=== PATIENT | male | born 1960 | race Native Hawaiian/Other Pacific Islander ===

== ENCOUNTER 2016-11-14 22:24 | Emergency (ER) | payer MEDICAID ==
[~2016-11-14] VITALS: Ht 185.4 cm; Wt 125.0 kg
[~2016-11-14 22:24] MED LIST: ARMO120T PO; ATOR40TA16 PO; BLOOD GLUCOSE M1 KIT; BLOOD GLUCOSE T1 TES; BUPR100T4 PO; CARD2TAB PO; CETI10 PO; CHRO200T4; CIAL5TAB PO; CLON1TAB PO; COQ-100C2; DAPA1TAB3 PO; GLUC1000 PO; HYDR-3366 PO; LOSA50TA PO; METO5TAB3 PO; OMEP20TA PO; POTA-243 PO; REQU5TAB PO; TRAZ300T2 PO; TRYP500C PO; VICT18IN SQ; XANA1TAB2 PO
[2016-11-14 22:26] VITALS: BP 160/86; PULSE 78; RESP 18; TEMP 97.9; O2SAT 98
[2016-11-15] MEDS ORDERED: HYDROmorphone HCL PF 1 MG/ML VIAL IM ONE (02:30)
[2016-11-15] MEDS ORDERED: LORazepam 2 MG/ML VIAL IM ONE (02:30)
[2016-11-15] MEDS ORDERED: MEDR4PAK PO (02:35)
[2016-11-15] MEDS ORDERED: HYDR-3516 PO (02:35)
--- NOTE | 2016-11-15 02:35 | PD ---
HPI Chief Complaint: Musculoskeletal Complaint Time Seen by Provider: 02:01 Travel History International Travel<30 days: No Contact w/Intl Traveler<30days: No Traveled to known affect area: No History of Present Illness HPI 56-year-old male came to the emergency room with history of lower back pain radiating down his left leg. Pain is getting worse over past 2 weeks and now he is getting some paresthesia as well. No history of bowel or bladder incontinence. Patient had gone to [facility] 2 weeks ago where a CAT scan was done that appeared to be within normal limits. After the symptoms continued he went to see his primary care yesterday who try to arrange for an MRI by getting preauthorization and then asked them to come to the emergency room to get the MRI done. Patient is here with the expectation to get an open MRI since they tried to get a closed MRI earlier yesterday as an outpatient and he got extremely claustrophobic. Vital signs are stable. Patient has history of lower back surgery for prolapsed disc in the past. [facility] Past Medical History Narrative Medical List of his past medical history as reviewed from the nursing note. Cancer: No Cardiovascular Problems: Yes (HTN) High Cholesterol: Yes Diabetes: Yes Patient Takes Glucophage: Yes Diminished Hearing: No Endocrine: Yes Genitourinary: Yes (FATTY LIVER) Hepatitis: No Hiatal Hernia: Yes Hypertension: Yes Immune Disorder: No Musculoskeletal: Yes (BACK AND NECK PAIN , NUMBNESS L HAND AND R LEG. L TRIGGER FINGER) Neurologic: Yes (neuropathy) Psychiatric: Yes (ANXIETY) Reproductive: No Respiratory: Yes (SLEEP APNEA USES A MACHINE ) Thyroid Disease: Yes Past Surgical History AICD: No Body Medical Devices: HARDWARE IN NECK AND BACK Joint Replacement: No Pacemaker: No Other Surgery: Yes (prostate, hernia, carpal tunnel, trigger finger) Social History Alcohol Use: No Tobacco Use: Yes (cigars) Substance Use: No Allergies-Medications (Allergen,Severity, Reaction): Coded Allergies: Fentanyl (Verified Allergy, Severe, ANAPHYLACTIC SHOCK, 11/14/16) Milk (Verified Allergy, Severe, Diarrhea, 11/14/16) Seroquel (Verified Allergy, Severe, SHAKING, 11/14/16) Toradol (Verified Allergy, Severe, SWELLING EYES, DIFFICULTY BREATHING, 11/14/16) Adhesives (Verified Allergy, Unknown, Rash, 11/14/16) Cortisone (Verified Allergy, Unknown, DIFFICULTY BREATHING, SWELLING TO EYES, 11/14/16) Meat (Verified Allergy, Unknown, RED MEAT, ABD. SWELLING, 11/14/16) Shellfish (Verified Allergy, Unknown, BLOATING, ITCHY, 11/14/16) Wheat (Verified Allergy, Unknown, DIVERTICULITIS, 11/14/16) Comments List of his allergies reviewed from the nursing note. Reported Meds & Prescriptions Reported Meds & Active Scripts Active Medrol Dosepak (Methylprednisolone) 4 Mg Dspk 4 Mg PO DIRECTED Per Pharmacist direction Hydrocodone-Acetaminophen 5-325 mg Tab 1 Tab PO Q6H PRN Blood Glucose Test Strips 1 Mabel Mabel 1 Box .ROUTE DIRECTED Blood Glucose Monitoring W/Device (Device) 1 Kit Kit 1 Kit .ROUTE DIRECTED Victoza Inj (Liraglutide Inj) 18 Mg/3 Ml Pen 1.8 Mg SQ ONCE Farxiga (Dapagliflozin) 10 Mg Tab 10 Mg PO DAILY Atorvastatin (Atorvastatin Calcium) 40 Mg Tab 40 Mg PO HS Glucophage (Metformin HCl) 1,000 Mg Tab 1,000 Mg PO BIDPC With a meal Reported Chromium Picolinate 200 Mcg Tab Xanax (Alprazolam) 1 Mg Tab 1 Mg PO Q6H PRN Trazodone (Trazodone HCl) 300 Mg Tab 300 Mg PO HS Requip (Ropinirole) 5 Mg Tab 5 Mg PO ONCE [place] (Hydrocodone-Acetaminophen) 10-325 Mg Tab 1 Tab PO Q4H PRN Tryptophan 500 Mg Cap 1,500 Mg PO DAILY Coq-10 (Coenzyme Q10 (Ubidecarenone)) 100 Mg Cap Clonazepam 1 Mg Tab 1 Mg PO BID Bupropion HCl 100 Mg Tab 300 Mg PO HS Klor-Con 10 (Potassium Chloride) 10 Meq Tab 10 Meq PO ONCE Omeprazole 20 Mg Tab 20 Mg PO DAILY Metolazone 5 Mg Tab 5 Mg PO DAILY Losartan (Losartan Potassium) 50 Mg Tab 50 Mg PO DAILY Cialis (Tadalafil) 5 Mg Tab 5 Mg PO DAILY Do not exceed 1 dose/day. Cetirizine (Cetirizine HCl) 10 Mg Tab 10 Mg PO DAILY Cardura (Doxazosin Mesylate) 2 Mg Tab 2 Mg PO DAILY [place] Thyroid (Thyroid) 120 Mg Tab 120 Mg PO DAILY Narrative Medication List of his home medications reviewed from the nursing note. Review of Systems Except as stated in HPI: all other systems reviewed are Neg Physical Exam Narrative GENERAL: Awake, alert, obese, moderate distress SKIN: Warm and dry. HEAD: Atraumatic. Normocephalic. EYES: Pupils equal and round. No scleral icterus. No injection or drainage. ENT: No nasal bleeding or discharge. Mucous membranes pink and moist. NECK: Trachea midline. No JVD. CARDIOVASCULAR: Regular rate and rhythm. No murmur appreciated. RESPIRATORY: No accessory muscle use. Clear to auscultation. Breath sounds equal bilaterally. GASTROINTESTINAL: Abdomen soft, non-tender, nondistended. Hepatic and splenic margins not palpable. MUSCULOSKELETAL: No obvious deformities. No clubbing. No cyanosis. No edema. NEUROLOGICAL: Awake and alert. No obvious cranial nerve deficits. Motor grossly within normal limits. Normal speech. Positive SLR of the left leg. PSYCHIATRIC: Appropriate mood and affect; insight and judgment normal. Data Data Last Documented VS Vital Signs Date Time Temp Pulse Resp B/P Pulse Ox O2 Delivery O2 Flow Rate FiO2 11/14/16 22:26 97.9 78 18 160/86 98 Orders Hydromorphone Pf Inj (Dilaudid Pf Inj) (11/15/16 02:30) Lorazepam Inj (Ativan Inj) (11/15/16 02:30) MDM Medical Decision Making Medical Screen Exam Complete: Yes Emergency Medical Condition: Yes Medical Record Reviewed: Yes Differential Diagnosis Sciatica, lumbar radiculopathy Narrative Course 2:31 AM I confirmed with the charge nurse regarding open MRI and this institution does not have open MRI. However there is open MRI available at [facility]. I explained this to the patient along with the charge nurse. Patient's son is there and they both understood. They were comfortable getting pain medication and muscle relaxant. I'll discharge him home with descriptions and he will get an MRI as an outpatient. Procedures EKG Prior to Arrival: No Diagnosis Primary Impression: Lumbar radiculopathy Referrals: Primary Care Physician 2 days Additional Instructions: Please take the medications as per the prescription direction. Please take the prescription for outpatient MRI from here primary care and try to get an open MRI. Do not drive or operate heavy machinery while on medications since they will make you groggy. Med/Other Pt SpecificInfo: Prescription(s) given Scripts Methylprednisolone Dosepak (Medrol Dosepak)4 Mg Dspk4 Mg PO DIRECTED #1 DSPK Ref 0 Per Pharmacist direction Prov:Gutierrez Yo MD 11/15/16 Hydrocodone-Acetaminophen 5-325 mg Tab1 Tab PO Q6H PRN (PAIN) #20 TAB Ref 0 Prov:Gutierrez Yo MD 11/15/16 Disposition: 01 DISCHARGE HOME Condition: Stable Gutierrez Yo MD Nov 15, 2016 02:35
[2016-12-07] MEDS ORDERED: METO5TAB3 PO (12:48)
[2016-12-07] MEDS ORDERED: BLOOD GLUCOSE T1 TES (12:56)
[2016-12-07] MEDS ORDERED: ARMO120T PO (12:56)
[2017-01-01] MEDS ORDERED: LEVA500T PO (09:04)
[2017-01-08] MEDS ORDERED: BUPR100T4 PO (09:23)
[2017-01-08] MEDS ORDERED: METO5TAB3 PO (09:36)
[2017-01-08] MEDS ORDERED: CETI10 PO ×2 (09:53→10:02)
[2017-01-12] MEDS ORDERED: BACT800T5 PO (10:01)
[2017-01-17] MEDS ORDERED: TOVI4TAB PO (16:02)
[2017-01-18] MEDS ORDERED: LOSA50TA PO ×2 (13:15→13:16)
[2017-01-19] MEDS ORDERED: POTA-243 PO (11:01)
[2017-01-25] MEDS ORDERED: GABA100C4 PO (09:27)
[2017-01-25] MEDS ORDERED: POTA-243 PO ×2 (09:57→11:44)
[2017-01-25] MEDS ORDERED: LOSA50TA PO (09:57)
[2017-01-25] MEDS ORDERED: ATOR40TA16 PO (09:57)
[2017-01-25] MEDS ORDERED: ARMO120T PO (09:57)
[2017-01-25] MEDS ORDERED: ZITHTAB PO (09:58)
[2017-04-03] MEDS ORDERED: ATOR40TA16 PO (09:12)
[2017-04-27] MEDS ORDERED: CETI10 PO (09:53)
[2017-04-27] MEDS ORDERED: VICT18IN SQ (09:53)
== END 2016-11-15 03:02 | disposition home or self-care (01) ==
LOC: NEPE 22:24
DX: M54.16 Radiculopathy, lumbar region (principal)
CPT/HCPCS: 96372; 99283; J1170; J2060

== ENCOUNTER 2016-12-28 05:33 | Observation (INO) | payer MEDICAID ==
[~2016-12-28] VITALS: Ht 182.9 cm; Wt 117.6 kg
[~2016-12-28 05:33] MED LIST changes: +HYDR-3516 PO; +MEDR4PAK PO
[2016-12-28] MEDS ORDERED: LACTATED RINGER'S 1000 ML IV SCH ×2 (06:15)
[2016-12-28] MEDS ORDERED: ceFAZolin 1,000 MG/NS 100 ML IV SCH ×2 (06:15)
[2016-12-28] MEDS ORDERED: SODIUM CHLORID 0.9% 500 ML IV SCH ×2 (06:15)
[2016-12-28] MEDS ORDERED: METOPROLOL TARTRATE 25 MG TAB PO PRN ×2 (06:15)
[2016-12-28] MEDS ORDERED: INSULIN HUMAN REGULAR 1,000 UNITS/10 ML VIAL SQ PRN ×2 (06:15)
[2016-12-28] MEDS ORDERED: BACL10TA PO (06:29)
[2016-12-28] MEDS ORDERED: [UNRECOGNIZED DRUG - CODE] (06:29)
[2016-12-28] MEDS ORDERED: NEUR100C PO (06:29)
[2016-12-28] MEDS ORDERED: NAPR500T PO (06:29)
[2016-12-28 06:33] VITALS: BP 121/85; PULSE 92; RESP 16; TEMP 98.1; O2SAT 98
[2016-12-28 06:54] LABS: AUTOMATED NEUTROPHIL # 4.7 TH/MM3 (1.8-7.7); BASOPHIL % 0.5 % (0.0-2.0); EOSINOPHIL # 0.3 TH/MM3 (0-0.4); EOSINOPHIL % 3.9 % (0.0-4.0); HEMATOCRIT 40.7 % (39.0-51.0); HEMO FLAGS DIFF FINAL; LYMPH % 28.8 % (9.0-44.0); LYMPHOCYTE # 2.4 TH/MM3 (1.0-4.8); MEAN CELL VOLUME 83.1 FL (80.0-100.0); MEAN CORPUSCULAR HEMOGLOBIN 29.8 PG (27.0-34.0); MEAN CORPUSCULAR HGB CONC 35.9 % (32.0-36.0); MONO % 9.7 % (0.0-8.0); NEUT % 57.1 % (16.0-70.0); PLATELET COUNT 180 TH/MM3 (150-450); RED CELL DISTRIBUTION WIDTH 13.4 % (11.6-17.2); WHITE BLOOD COUNT 8.3 TH/MM3 (4.0-11.0)
[2016-12-28 07:06] LABS: BICARBONATE 27.4 MEQ/L (21.0-32.0); POTASSIUM 3.2 MEQ/L (3.5-5.1)
[2016-12-28 07:09] LABS: APTT (PATIENT) 29.3 SEC (24.3-30.1); INTERNATIONAL NORMALIZED RATIO 1.1 RATIO; PROTHROMBIN TIME - PATIENT 12.2 SEC (9.8-11.6)
[2016-12-28] MEDS ORDERED: FUROSEMIDE 40 MG/4 ML VIAL ONE (07:30)
[2016-12-28] MEDS ORDERED: ONDANSETRON HCL 4 MG/2 ML VIAL IV PUSH ONE (08:31)
[2016-12-28] MEDS ORDERED: PROPOFOL 200 MG/20 ML AMP IV ONE (08:31)
[2016-12-28] MEDS ORDERED: ePHEDrine/NS 25 MG/5 ML SYR IV ONE (08:31)
--- NOTE | 2016-12-28 08:53 | PD.OP ---
Operative Report Date of Surgery: Dec 28, 2016 Preoperative Diagnosis: BPH with obstruction Postoperative Diagnosis: same Procedure: cystoscopy; TUR vaporization of prostate Anesthesia: general LMA Surgeon: Zachery Morris Workers Compensation Coordinator(s): none Operation and Findings: 56-year-old male presents with history of BPH with obstruction and lower urinary tract symptoms. Decision was made to proceed with transurethral vaporization of the prostate. Risk and benefits were discussed including bleeding, infection, incontinence, and impotence and he was willing to proceed. Patient was brought to the operating room and identified myself as Rosalina Garza. He was placed in the dorsal lithotomy position, prepped and draped in usual sterile fashion, received preprocedure antibiotics, and general LMA anesthesia was administered. The 24 Cymro resectoscope sheath was inserted into the bladder with the 12 lens used for visualization. The button electrode was also attached. Settings were set at 5/5. Nolen cystoscopy of the bladder did not reveal any abnormalities. Both ureteral orifices were identified. Using the VaporTrode incision was made at the 6 o'clock position and the verumontanum was identified. Circumferentially the VaporTrode was then utilized in a circumferential manner in the direction of 12:00 counterclockwise from the 6 o'clock position and clockwise from the 6 to the 12 o'clock position. Care was taken to make sure that the scope was sitting at the mallorie throughout the entire resection. Hemostasis was obtained using the coagulation aspect of the VaporTrode. At the completion procedure, both ureteral orifices were visualized. A 22 Cymro three-way Monte catheter was then placed over a catheter guide in good position. 25 cc of water were placed into the balloon. Irrigation with a piston syringe was noted to be clear at this time. The patient tolerated the procedure well and was awoken and transferred to the recovery room in stable condition. Zachery Morris DO Dec 28, 2016 08:53
[2016-12-28] MEDS ORDERED: MIDAZOLAM HCL 2 MG/2 ML VIAL ONE (09:09)
[2016-12-28] MEDS ORDERED: BELLADONNA ALKALOIDS/OPIUM 60 MG SUPP ONE (09:14)
[2016-12-28] MEDS ORDERED: ACETAMINOPHEN/HYDROcodone 325 MG/5 MG TAB PO PRN (09:30)
[2016-12-28] MEDS ORDERED: ONDANSETRON HCL 4 MG/2 ML VIAL IV PUSH PRN (09:30)
[2016-12-28] MEDS ORDERED: MORPHINE SULFATE 4 MG/ML INJ IV PUSH PRN (09:30)
[2016-12-28] MEDS ORDERED: DO NOT ADM ANY ANTICOAGULANT DRUGS XX PRN (09:30)
[2016-12-28] MEDS ORDERED: BELLADONNA ALKALOIDS/OPIUM 60 MG SUPP RECTAL ONE (09:30)
[2016-12-28] MEDS ORDERED: INSULIN HUMAN REGULAR 1,000 UNITS/10 ML VIAL SQ ONE (10:45)
[2016-12-28] MEDS ORDERED: BELLADONNA ALKALOIDS/OPIUM 60 MG SUPP RECTAL PRN (10:45)
[2016-12-28] MEDS ORDERED: ACETAMINOPHEN 325 MG TAB PO PRN (10:45)
[2016-12-28] MEDS ORDERED: BACLOFEN 10 MG TAB PO PRN (10:45)
[2016-12-28] MEDS ORDERED: ALPRAZolam 1 MG TAB PO PRN (10:45)
[2016-12-28] MEDS: 1/2 NS + KCL 20 MEQ INJ 1,000 ML IV SCH ×2 (11:45→22:04)
[2016-12-28] MEDS: PANTOPRAZOLE SODIUM 40 MG VIAL IV PUSH SCH (12:00)
[2016-12-28] MEDS: LEVOFLOXACIN 500 MG PREMIX INJ 100 ML IV SCH (12:00)
[2016-12-28] MEDS ORDERED: INDIVIDUALIZED INSULIN NOVOLIN REGULAR SUPPLEMENTAL SCALE SQ PRN (13:00)
[2016-12-28 16:00] VITALS: BP 105/57; PULSE 78; RESP 18; TEMP 95.7; O2SAT 99
[2016-12-28] MEDS: GABAPENTIN 100 MG CAP PO SCH (17:25)
[2016-12-28 17:49] VITALS: O2SAT 98
[2016-12-28 20:00] VITALS: BP 103/62; PULSE 62; RESP 20; TEMP 97; O2SAT 92
[2016-12-28] MEDS ORDERED: ATORVASTATIN 40 MG TAB PO SCH (21:00)
[2016-12-28] MEDS ORDERED: traZODone HCL 100 MG TAB PO SCH (21:00)
[2016-12-28] MEDS ORDERED: buPROPion HCL 100 MG TAB PO ONE (21:00)
[2016-12-28] MEDS: clonazePAM 1 MG TAB PO SCH (22:00)
[2016-12-28] MEDS: metFORMIN HCL 500 MG TAB PO SCH (22:00)
[2016-12-29] VITALS: BP 90/61; PULSE 84; RESP 20; TEMP 96.5; O2SAT 96
[2016-12-29 04:00] VITALS: BP 108/70; PULSE 75; RESP 20; TEMP 96; O2SAT 98
[2016-12-29 08:00] VITALS: BP 104/57; PULSE 81; RESP 18; TEMP 97; O2SAT 100
[2016-12-29] MEDS: clonazePAM 1 MG TAB PO SCH (08:10)
[2016-12-29] MEDS: GABAPENTIN 100 MG CAP PO SCH ×2 (08:11→11:56)
[2016-12-29] MEDS: metFORMIN HCL 500 MG TAB PO SCH (08:11)
[2016-12-29] MEDS: 1/2 NS + KCL 20 MEQ INJ 1,000 ML IV SCH (08:12)
[2016-12-29 08:40] VITALS: O2SAT 95
[2016-12-29] MEDS ORDERED: LOSARTAN 50 MG TAB PO SCH (09:00)
[2016-12-29] MEDS ORDERED: CETIRIZINE HCL 10 MG TAB PO SCH (09:00)
[2016-12-29] MEDS ORDERED: METOLAZONE 5 MG TAB PO SCH (09:00)
[2016-12-29] MEDS ORDERED: THYROID 60 MG TAB PO SCH (09:00)
--- NOTE | 2016-12-29 09:03 | HHI.PR ---
Subjective Remarks Pt feels well. No complaints. Objective Vital Signs Vital Signs Date Time Temp Pulse Resp B/P Pulse Ox O2 Delivery O2 Flow Rate FiO2 12/29/16 08:00 97.0 81 18 104/57 100 12/29/16 04:00 96.0 75 20 108/70 98 12/29/16 00:00 96.5 84 20 90/61 96 12/28/16 20:00 97.0 62 20 103/62 92 12/28/16 17:49 98 Nasal Cannula 3.00 12/28/16 16:00 95.7 78 18 105/57 99 12/28/16 16:00 98.1 78 12 123/74 97 Nasal Cannula 3 12/28/16 15:00 74 12 125/79 98 Nasal Cannula 3 12/28/16 14:00 69 12 122/74 98 Nasal Cannula 3 12/28/16 13:00 74 12 126/75 98 Nasal Cannula 3 12/28/16 12:00 98.2 74 12 124/74 98 Nasal Cannula 3 12/28/16 11:00 82 12 129/82 97 Nasal Cannula 3 12/28/16 10:30 85 12 130/87 96 Nasal Cannula 3 12/28/16 10:15 84 12 137/81 96 Nasal Cannula 3 12/28/16 10:00 92 12 123/82 98 Nasal Cannula 3 12/28/16 09:45 87 12 125/86 97 Nasal Cannula 3 12/28/16 09:30 93 12 136/84 97 Nasal Cannula 3 12/28/16 09:15 96 12 122/70 95 Nasal Cannula 3 I/O 12/28/16 12/28/16 12/28/16 12/29/16 12/29/16 12/29/16 07:00 15:00 23:00 07:00 15:00 23:00 Intake Total 700 ml 120 ml 774 ml Output Total 5 ml 4000 ml 1000 ml Balance 695 ml -3880 ml -226 ml Intake Oral 120 ml 240 ml IV Total 534 ml Other 700 ml Output Urine Total 4000 ml 1000 ml Estimated Blood Loss 5 ml # Voids 0 # Bowel Movements 0 0 Result Diagram: 12/28/1662712/28/16627 Objective Remarks Abd:soft,nt,nd Monte with clear urine Assessment and Plan Assessment and Plan Stable s/p TURP D/c home Zachery Morris DO Dec 29, 2016 09:03
[2016-12-29] MEDS: PANTOPRAZOLE SODIUM 40 MG VIAL IV PUSH SCH (11:53)
[2016-12-29] MEDS: LEVOFLOXACIN 500 MG PREMIX INJ 100 ML IV SCH (11:53)
[2016-12-29 12:00] VITALS: BP 115/68; PULSE 89; RESP 19; TEMP 98.3; O2SAT 98
--- NOTE | 2016-12-31 21:53 | MD ---
cc: MARI MORRIS ADMISSION DATE: 12/28/2016 DISCHARGE DATE: 12/29/2016 HISTORY Rosalina Garza is a 56-year-old male with BPH with obstruction and lower urinary tract symptoms who underwent a transurethral resection of his prostate yesterday on 12/28/2016. He tolerated the procedure well and was kept overnight for observation and there were no problems. He is tolerating his regular diet, ambulating without difficulty and given instructions for diet, exercise and medications and scheduled to follow up Sunday for a void trial. Mari Morris SWT/KK /9:11 AM /9:49 PM
[2017-01-01] MEDS ORDERED: LEVA500T PO (09:04)
[2017-01-08] MEDS ORDERED: BUPR100T4 PO (09:23)
[2017-01-08] MEDS ORDERED: METO5TAB3 PO (09:36)
[2017-01-08] MEDS ORDERED: CETI10 PO ×2 (09:53→10:02)
[2017-01-12] MEDS ORDERED: BACT800T5 PO (10:01)
[2017-01-17] MEDS ORDERED: TOVI4TAB PO (16:02)
[2017-01-18] MEDS ORDERED: LOSA50TA PO ×2 (13:15→13:16)
[2017-01-19] MEDS ORDERED: POTA-243 PO (11:01)
[2017-01-25] MEDS ORDERED: GABA100C4 PO (09:27)
[2017-01-25] MEDS ORDERED: POTA-243 PO ×2 (09:57→11:44)
[2017-01-25] MEDS ORDERED: LOSA50TA PO (09:57)
[2017-01-25] MEDS ORDERED: ATOR40TA16 PO (09:57)
[2017-01-25] MEDS ORDERED: ARMO120T PO (09:57)
[2017-01-25] MEDS ORDERED: ZITHTAB PO (09:58)
[2017-04-03] MEDS ORDERED: ATOR40TA16 PO (09:12)
[2017-04-27] MEDS ORDERED: CETI10 PO (09:53)
[2017-04-27] MEDS ORDERED: VICT18IN SQ (09:53)
== END 2016-12-29 17:05 | disposition home or self-care (01) ==
LOC: HSDC 05:33 → HSDI 10:57 → N07B 16:24
PROVIDERS: ADMIT Urology; ATTEND Urology
DX: N40.1 Benign prostatic hyperplasia with lower urinary tract symptoms (principal); N13.8 Other obstructive and reflux uropathy
CPT/HCPCS: 00914; 36415; 52648; 80048; 85025; 85610; 85730; 88305; 94150; C9113; G0378; J1956; J2250; J2405; J3010; J1940